=== PATIENT | female | born 1970 | race Caucasian/White ===

== ENCOUNTER 2017-02-01 08:52 | Emergency (ER) | payer OTHER ==
[2017-02-01] MEDS ORDERED: ONDANSETRON HCL 4 MG/2 ML VIAL ONE (09:18)
[2017-02-01 09:23] LABS: BASOPHIL# 0.1 X 10^3uL (0.0-0.1); BASOPHILS 0.4 % (0.0-2.0); HEMATOCRIT 47.8 % (36.0-48.0); HEMOGLOBIN 16.8 g/dL (12.0-16.0); LYMPHOCYTES 5.7 % (20.0-40.0); LYMPHOCYTES# 0.9 X 10^3uL (0.8-3.8); MEAN CELL VOLUME 91.7 fL (80.0-100.0); MEAN CORPUS. HGB CONCENTRATION 35.1 g/dL (32.0-36.0); MEAN CORPUSCULAR HEMOGLOBIN 32.2 pg (29.0-35.0); MEAN PLATELET VOLUME 9.3 fL (7.4-10.4); MONOCYTES 1.9 % (2.0-10.0); MONOCYTES# 0.3 X 10^3uL (0.2-1.0); NEUTROPHILS# 14.8 X 10^3uL (2.6-6.7); PLATELET COUNT 315 X 10^3uL (130-440); RED BLOOD COUNT 5.21 X 10^6uL (4.20-6.10); RED CELL DISTRIBUTION WIDTH 12.5 % (11.5-14.5); WHITE BLOOD COUNT 16.1 X 10^3uL (3.9-10.7)
[2017-02-01 09:26] LABS: ALBUMIN 4.9 g/dL (3.5-5.0); ALKALINE PHOSPHATASE 56 U/L (38-126); ALT 23 U/L (9-52); AST 20 U/L (14-36); BILIRUBIN, DIRECT 0.1 mg/dL (0.0-0.4); BILIRUBIN, TOTAL 0.8 mg/dL (0.2-1.3); BLOOD UREA NITROGEN 11 mg/dL (7-17); CALCIUM 9.6 mg/dL (8.4-10.2); CHLORIDE 102 mmol/L (98-107); CREATININE 0.8 mg/dL (0.5-1.0); EST GLOMERULAR FILTRATION RATE > 60 mL/min; GLUCOSE 133 mg/dL (70-100); LIPASE 85 U/L (23-300); POTASSIUM 3.7 mmol/L (3.5-5.1); SODIUM 141 mmol/L (137-145); TOTAL PROTEIN 7.9 g/dL (6.3-8.2)
[2017-02-01] MEDS ORDERED: KETOROLAC TROMETHAMINE 30 MG/ML VIAL ONE (09:42)
[2017-02-01] MEDS ORDERED: FAMOTIDINE IN SALINE, ISO-OSM 50 ML IV ONE (09:42)
[2017-02-01] MEDS ORDERED: DIPHENHYDRAMINE 50 MG/ML VIAL ONE (10:56)
--- NOTE | 2017-02-01 13:39 | ER PHYSICIAN DOCUMENTATION ---
Physician Documentation [facility] Name:Celsa Donohue Age:46 yrs Sex:Female :1970 Arrival Date:02/01/2017 Time:08:52 Bed4 Private MD: Jasson White Disposition: 02/01/17 12:35 Discharged to Home/Self Care. Impression: Gastroenteritis vs. Food Poisoning, Dehydration. - Condition is Fair. - Discharge Instructions: DEHYDRATION (6y-Adult), DIARRHEA VOMIT Viral 6yAdult - GASTROENTERITIS, Viral [6y-Adult]. - Prescriptions for Zofran 4 mg Oral Tablet - take 1 tablet by ORAL route every 12 hours .; 20 tablet. - Medical Reconciliation form form. - Follow up: Emergency Department; When: As needed; Reason: Worsening of condition. - Problem is new. - Symptoms have improved. HPI: 02/01 09:52 This 46 yrs old Female presents to ER via Private Vehicle with complaints of sc Vomiting/Diarrhea. 09:52 The patient presents to the emergency department with nausea, with vomiting, with sc diarrhea, without any complaints of abdominal pain. Onset: The symptom(s)/episode began/occurred yesterday, at 21:00. Possible causes: unknown, bad food exposure, sick contacts. The symptoms are alleviated by nothing. Associated signs and symptoms: Pertinent positives: anorexia, belching, diarrhea, nausea, vomiting. Severity of symptoms: At their worst the symptoms were severe. The patient has not experienced similar symptoms in the past. Historical: - Allergies: Morphine; - Home Meds: 1. None - PMHx: None; - PSHx: None; - Ebola Screening: : Patient negative for fever greater than or equal to 101.5 degrees Fahrenheit, and additional compatible Ebola Virus Disease symptoms. ROS: 09:53 Eyes: Negative for injury, pain, redness, and discharge. sc ENT: Negative for injury, pain, and discharge. Neck: Negative for injury, pain, and swelling. Cardiovascular: Negative for chest pain, palpitations, and edema. Respiratory: Negative for shortness of breath, cough, wheezing, and pleuritic chest pain. Back: Negative for injury and pain. MS/Extremity: Negative for injury and deformity. 09:53 Skin: Negative for injury, rash, and discoloration. sc 09:53 Constitutional: Positive for chills, fatigue. 09:53 Abdomen/GI: Positive for nausea, vomiting, diarrhea. 09:53 Neuro: Positive for headache. Exam: Head/Face: Normocephalic, atraumatic. Eyes: Pupils equal round and reactive to light, extra-ocular motions intact. Lids and lashes normal. Conjunctiva and sclera are non-icteric and not injected. Cornea within normal limits. Periorbital areas with no swelling, redness, or edema. ENT: Nares patent. No nasal discharge, no septal abnormalities noted. Tympanic membranes are normal and external auditory canals are clear. Oropharynx with no redness, swelling, or masses, exudates, or evidence of obstruction, uvula midline. Mucous membranes moist. Neck: Trachea midline, no thyromegaly or masses palpated, and no cervical lymphadenopathy. Supple, full range of motion without nuchal rigidity, or vertebral point tenderness. No meningismus. Chest/axilla: Normal chest wall appearance and motion. Nontender with no deformity. No lesions are appreciated. Cardiovascular: Regular rate and rhythm with a normal S1 and S2. No gallops, murmurs, or rubs. Normal PMI, no JVD. No pulse deficits. Respiratory: Lungs have equal breath sounds bilaterally, clear to auscultation and percussion. No rales, rhonchi or wheezes noted. No increased work of breathing, no retractions or nasal flaring. Abdomen/GI: Soft, non-tender, with normal bowel sounds. No distension or tympany. No guarding or rebound. No evidence of tenderness throughout. 09:54 Back: No spinal tenderness. No costovertebral tenderness. Full range of motion. sc 09:54 Constitutional: The patient appears in obvious distress, uncomfortable. 09:54 Cardiovascular: Rate: normal, Rhythm: regular. 09:54 Abdomen/GI: Inspection: abdomen appears normal, Bowel sounds: active. 09:54 Skin: Turgor: is poor. Vital Signs: 09:16 BP 142 / 90; Pulse 60; Resp 22; Temp 97.5; Pulse Ox 94% ; Weight 65.77 kg; Height [address] 2 in. (157.48 cm); Pain 8/10; 09:35 Pulse 56; Pulse Ox 96% ; st 10:10 BP 153 / 80 (auto/); st 10:14 Pulse 62; Pulse Ox 98% ; st 10:40 BP 159 / 98 (auto/); st 10:44 Pulse Ox 99% ; st 11:00 BP 157 / 100 (auto/); st 11:04 Pulse Ox 95% ; st 11:30 BP 140 / 86 (auto/); st 11:34 Pulse Ox 97% ; st 12:04 Pain 6/10; st 13:38 Pain 3/10; st 09:16 Body Mass Index 26.52 (65.77 kg, 157.48 cm) st MDM: 09:06 Patient medically screened. sd 09:55 Differential diagnosis: viral gastroenteritis, gastroenteritis. Data reviewed: vital sc signs, nurses notes, lab test result(s), and as a result, I will continue to observe the patient, administer IV fluids. Medication response: The patient's symptoms have improved. 02/01 09:28 Order name: BASIC METABOLIC PANEL; Complete Time: 10:10 EDMS 02/01 10:10 Interpretation: Normal. sd 02/01 09:28 Order name: HEPATIC PANEL; Complete Time: 10:10 EDMS 02/01 10:10 Interpretation: Normal. sd 02/01 09:28 Order name: LIPASE; Complete Time: 10:10 EDMS 02/01 10:10 Interpretation: Normal. sd 02/01 09:33 Order name: CBC AUTO DIF, MDIF/RMOR IF IND; Complete Time: 10:10 EDMS 02/01 10:10 Interpretation: Abnormal: WHITE BLOOD COUNT 16.1; RED BLOOD COUNT 5.21; NEUTROPHILS sc 92.0. 02/01 09:09 Order name: Iv Saline Lock; Complete Time: 09:10 st Dispensed Medications: 09:07 Drug: Zofran 4 mg; Route: PO; 09:33 Follow up: Response: Nausea unchanged st 09:10 Drug: NS 0.9% 1000 ml; Route: IV; Rate: bolus; Site: left antecubital; st 10:13 Follow up: IV Status: Completed infusion; IV Intake: 1000ml st 09:31 Drug: Pepcid 20 mg; Route: IVPB; Site: left antecubital; st 10:00 Follow up: IV Status: Completed infusion; IV Intake: 50ml st 09:31 Drug: Toradol 30 mg; Route: IVP; Site: left antecubital; st 10:13 Follow up: Response: Pain is unchanged, physician notified st 10:13 Drug: NS 0.9% 1000 ml; Route: IV; Rate: bolus; Site: left antecubital; st 11:44 Follow up: IV Status: Completed infusion; IV Intake: 1000ml st 10:48 Drug: Benadryl 25 mg; Route: IVP; Site: left antecubital; st 13:39 Follow up: Response: Pain is decreased st 10:49 Drug: Compazine 10 mg; Route: IVPB; Site: left antecubital; st 10:49 CANCELLED (Duplicate Order): Benadryl [address] 10:49 CANCELLED (Duplicate Order): Compazine 10 mg IVPB once; Compazine 10mg in 250ml NS IVPB st over 20 minutes 11:45 Drug: NS 0.9% 1000 ml; Route: IV; Rate: 250 ml/hr; Site: left antecubital; st 13:38 Follow up: IV Status: Completed infusion; IV Intake: 300ml st Point of Care Testing: Urine Dip: 12:12 pH: 5.5; ; Specific [place]: 1.025; Ketones: Large; Glucose: Negative; Protein: st Negative; Leukocytes: Negative; Nitrite: Negative ; Blood: Moderate (++); Bilirubin: Negative ; Urobilinogen: Normal Signatures: Thea Riley RN RN st Chew, Scott, MD MD sd Heriberto, Oma
--- NOTE | 2017-02-01 13:39 | ER NURSING DOCUMENTATION ---
Nurse's Notes [facility] Name:Celsa Donohue Age:46 yrs Sex:Female :1970 Arrival Date:02/01/2017 Time:08:52 Bed4 Private MD: Diagnosis:Gastroenteritis vs. Food Poisoning;Dehydration Presentation: 02/01 08:55 Presenting complaint: Patient states: N/V/D since 9 PM with a bad headache. pt has been st in [place] for 6 months. Transition of care: Home. 08:55 Method Of Arrival: Private Vehicle st 08:55 Acuity: BALJINDER 2 st Triage Assessment: 09:15 General: Appears uncomfortable, Behavior is cooperative. Pain: Complains of pain in st epigastric area, headache Pain currently is 8 out of 10 on a pain scale. Pain began 30 min ago. 09:15 EENT: Oral mucosa is dry. Cardiovascular: No deficits noted. Respiratory: No deficits st noted. GI: Abdomen is flat, non- distended Abd is soft X 4 quads Abdomen is tender to palpation in epigastric area Reports diarrhea, nausea, vomiting. Historical: - Allergies: Morphine; - Home Meds: 1. None - PMHx: None; - PSHx: None; - Ebola Screening: : Patient negative for fever greater than or equal to 101.5 degrees Fahrenheit, and additional compatible Ebola Virus Disease symptoms. Screenin:19 Nutritional screening: No deficits noted. st Assessment: 10:13 General: pt states she still feels very sick.. st 10:[address] 11:22 General: pt sleeping quietly. st 13:04 General: pt sleeping. pt is able to go when she feels like she is ready. . st Vital Signs: 09:16 BP 142 / 90; Pulse 60; Resp 22; Temp 97.5; Pulse Ox 94% ; Weight 65.77 kg; Height [address] 2 in. (157.48 cm); Pain 8/10; 09:35 Pulse 56; Pulse Ox 96% ; st 10:10 BP 153 / 80 (auto/); st 10:14 Pulse 62; Pulse Ox 98% ; st 10:40 BP 159 / 98 (auto/); st 10:44 Pulse Ox 99% ; st 11:00 BP 157 / 100 (auto/); st 11:04 Pulse Ox 95% ; st 11:30 BP 140 / 86 (auto/); st 11:34 Pulse Ox 97% ; st 12:04 Pain 6/10; st 13:38 Pain 3/10; st 09:16 Body Mass Index 26.52 (65.77 kg, 157.48 cm) st ED Course: 08:53 Patient arrived in ED. lm3 08:55 Thea Riley RN is Primary Nurse. st 08:[address] 09:06 Jasson Ocampo MD is Attending Physician. sc 09:11 Inserted saline lock: 20 gauge in left antecubital area and blood collected. st 09:19 Valuables Remains with patient Patient has correct armband on for positive st identification. Placed in gown. Bed in low position. Call light in reach. Side rails up X 1. Warm blanket given. 12:05 Assisted to bathroom. pt a little unsteady on her feet. st Administered Medications: 09:07 Drug: Zofran 4 mg; Route: PO; rh 09:33 Follow up: Response: Nausea unchanged st 09:10 Drug: NS 0.9% 1000 ml; Route: IV; Rate: bolus; Site: left antecubital; st 10:13 Follow up: IV Status: Completed infusion; IV Intake: 1000ml st 09:31 Drug: Pepcid 20 mg; Route: IVPB; Site: left antecubital; st 10:00 Follow up: IV Status: Completed infusion; IV Intake: 50ml st 09:31 Drug: Toradol 30 mg; Route: IVP; Site: left antecubital; st 10:13 Follow up: Response: Pain is unchanged, physician notified st 10:13 Drug: NS 0.9% 1000 ml; Route: IV; Rate: bolus; Site: left antecubital; st 11:44 Follow up: IV Status: Completed infusion; IV Intake: 1000ml st 10:48 Drug: Benadryl 25 mg; Route: IVP; Site: left antecubital; st 13:39 Follow up: Response: Pain is decreased st 10:49 Drug: Compazine 10 mg; Route: IVPB; Site: left antecubital; st 10:49 CANCELLED (Duplicate Order): Benadryl [address] 10:49 CANCELLED (Duplicate Order): Compazine 10 mg IVPB once; Compazine 10mg in 250ml NS IVPB st over 20 minutes 11:45 Drug: NS 0.9% 1000 ml; Route: IV; Rate: 250 ml/hr; Site: left antecubital; st 13:38 Follow up: IV Status: Completed infusion; IV Intake: 300ml st Point of Care Testing: Urine Dip: 12:12 pH: 5.5; ; Specific [place]: 1.025; Ketones: Large; Glucose: Negative; Protein: st Negative; Leukocytes: Negative; Nitrite: Negative ; Blood: Moderate (++); Bilirubin: Negative ; Urobilinogen: Normal Intake: 10:00 IV: 50ml; Total: 50ml. st 10:13 IV: 1000ml; Total: 1050ml. st 11:44 IV: 1000ml; Total: 2050ml. st 13:38 IV: 300ml; Total: 2350ml. st Outcome: 12:35 Discharge ordered by . hi 13:38 Discharged to home via wheelchair. 13:38 Condition: improved 13:38 Discharge instructions given to patient, Instructed on discharge instructions, follow up and referral plans. medication usage, Prescriptions given X 1. 13:39 [address] the ED[address] st 02/02 11:30 Discharge F/U Call: Unable to reach: non-working number lc Signatures: Thea Riley RN RN st Coleman, Linda, RN RN lc Chew, Scott, MD MD sc Hofsess, Rachel rh McKibbon[place]Mo[place], Lisa [id number]
== END 2017-02-01 13:39 | disposition home or self-care (01) ==
LOC: ER 08:52
DX: E86.0 Dehydration (principal); R11.2 Nausea with vomiting, unspecified; R19.7 Diarrhea, unspecified; R51 Headache; R53.83 Other fatigue
CPT/HCPCS: 80048; 80076; 83690; 85025; 96361; 96365; 96375; 99284; J1200; J1885; J2405